=== PATIENT | born 2005 ===

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

== ENCOUNTER 2024-03-13 19:36 | Outpatient (REF) | payer OTHER, SELFPAY ==
[2024-03-13 21:09] LABS: HCT 45.2 %; HGB 14.9 g/dL; MCH 29.2 pg; MCV 89 fL; MPV 9.6 fL; Platelet Count 235 10^3/uL; RBC 5.11 10^6/uL; RDW 12.6 %; RDW-SD 41.4 fL; WBC 10.25 10^3/uL
[2024-03-13 21:24] LABS: Hemoglobin A1C 5.2 %
[2024-03-13 21:32] LABS: Calculated LDL 120 mg/dL; Cholesterol 179 mg/dL; HDL Cholesterol 50 mg/dL; TSH (W/Ref FT4) 1.22 uIU/mL (0.52-4.13); Triglyceride 46 mg/dL
== END 2024-03-13 19:37 | disposition home or self-care (01) ==
LOC: NCHCN 19:36
PROVIDERS: PCP Family Medicine; Visit Provider Family Medicine
DX: Z00.00 Encounter for general adult medical examination without abnormal findings (principal); R63.4 Abnormal weight loss; Z13.220 Encounter for screening for lipoid disorders; Z13.1 Encounter for screening for diabetes mellitus
CPT/HCPCS: 80061; 85027; 83036; 84443